=== PATIENT | female | born 1930 | race Caucasian/White ===

== ENCOUNTER → 2017-01-27 | Outpatient (CLI) | payer MEDICARE, BC | END | disposition short-term general hospital (02) | LOC: CLPULM 13:42 → RAD 14:08 → CLPULM 17:00 | DX: J45.909 Unspecified asthma, uncomplicated (principal); I10 Essential (primary) hypertension; E11.9 Type 2 diabetes mellitus without complications; I27.2 Other secondary pulmonary hypertension; K27.9 Peptic ulcer, site unspecified, unspecified as acute or chronic, without hemorrhage or perforation ==

== ENCOUNTER → 2017-03-11 | Outpatient (CLI) | payer MEDICARE, BC | END | disposition short-term general hospital (02) | LOC: CLNEUR 09:51 | DX: G25.0 Essential tremor (principal) ==